=== PATIENT | female | born 2000 | race Caucasian/White ===

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

== ENCOUNTER → 2019-01-25 | Outpatient (CLI) | payer OTHER ==
[2019-01-25 10:18] LABS: HEMATOCRIT 33.8 % (36.0-47.0); HEMOGLOBIN 11.9 g/dl (12.0-15.5); MEAN CORPUSCULAR HEMOGLOBIN 33.5 pg (27.0-33.0); MEAN CORPUSCULAR HGB CONC 35.2 g/dl (32.0-36.5); MEAN CORPUSCULAR VOLUME 95.2 fl (80.0-96.0); PLATELET COUNT, AUTOMATED 203 10^3/uL (150-450); RED BLOOD COUNT 3.55 10^6/uL (4.00-5.40); WHITE BLOOD COUNT 7.8 10^3/uL (4.0-10.0)
== END ==
LOC: M LAB 08:41
PROVIDERS: ATTEND Advanced Practice Midwife
DX: O99.89 Other specified diseases and conditions complicating pregnancy, childbirth and the puerperium (principal); Z3A.00 Weeks of gestation of pregnancy not specified

== ENCOUNTER → 2019-04-07 | Outpatient (REF) | payer OTHER | LOC: M SFHCWAGY 13:38 | PROVIDERS: ATTEND Obstetrics & Gynecology | DX: Z36.85 Encounter for antenatal screening for Streptococcus B (principal) ==

== ENCOUNTER 2019-04-17 17:30 | Outpatient (CLI) | payer OTHER ==
[~2019-04-17] VITALS: Ht 167.6 cm; Wt 84.2 kg
[2019-04-17 17:54] VITALS: BP 126/76
[2019-04-17] MEDS ORDERED: PRENTAB9 PO (18:23)
== END 2019-04-17 19:35 | disposition home or self-care (01) ==
LOC: M LDO 17:30
PROVIDERS: ATTEND Obstetrics & Gynecology
DX: O47.03 False labor before 37 completed weeks of gestation, third trimester (principal); Z3A.37 37 weeks gestation of pregnancy
CPT/HCPCS: 59025; G0378; G0463

== ENCOUNTER 2019-04-18 00:47 | Inpatient (IN) | payer OTHER ==
[2019-04-18] VITALS (31 sets, daily range): BP systolic 97–127; BP diastolic 52–80
[~2019-04-18] VITALS: Ht 167.6 cm; Wt 84.2 kg
[~2019-04-18 00:47] MED LIST: PRENTAB9 PO
[2019-04-18] MEDS ORDERED: LACTATED RINGER'S 1000 ML IV STA (03:32)
[2019-04-18] MEDS ORDERED: LR 1,000 ML IV SCH (03:32)
[2019-04-18 04:11] LABS: HEMOGLOBIN 13.1 g/dl (12.0-15.5); MEAN CORPUSCULAR HEMOGLOBIN 32.8 pg (27.0-33.0); MEAN CORPUSCULAR HGB CONC 34.5 g/dl (32.0-36.5); PLATELET COUNT, AUTOMATED 186 10^3/uL (150-450); WHITE BLOOD COUNT 12.8 10^3/uL (4.0-10.0)
[2019-04-18] MEDS ORDERED: FENTANYL 2MCG/ML ROPIVACAINE 0.2% IN 0.9% NACL 100ML IVBAG As Ordered ONE (04:56)
[2019-04-18] MEDS ORDERED: REFRIGERATOR IV KEYS XX PRN (05:40)
[2019-04-18] MEDS ORDERED: LACTATED RINGER'S 1000 ML IV PRN (05:40)
[2019-04-18] MEDS ORDERED: FENTANYL/ROPIVACAINE/NACL BAG 100 ML EPIDURAL SCH (05:40)
[2019-04-18] MEDS ORDERED: ONDANSETRON 4MG/2ML VIAL (J2405) IV PRN ×2 (05:40→22:00)
[2019-04-18] MEDS ORDERED: EPIDURAL/PCA KEYS XX PRN (05:40)
[2019-04-18] MEDS ORDERED: NALOXONE INJ 0.4 MG/1 ML VIAL (J2310) IV PRN (05:40)
[2019-04-18] MEDS ORDERED: diphenhydrAMINE INJ 50MG/ML VIAL (J1200) IV PRN (05:40)
[2019-04-18] MEDS ORDERED: EPIDURAL COMMENT XX SCH (05:40)
[2019-04-18] MEDS: ePHEDrine SULFATE 25 MG/5 ML(5MG/ML) SYRINGE IV PRN ×2 (08:53→09:08)
[2019-04-18] MEDS ORDERED: OXYTOCIN DRIP 30 UNITS in IV 1 EA IV SCH ×2 (09:00→12:41)
[2019-04-18] MEDS ORDERED: ACETAMINOPHEN TAB 650MG DOSE (2X325MG) PO PRN (12:45)
[2019-04-18] MEDS ORDERED: MEASLES,MUMPS,RUBELLA VACCINE INJ (MMR-II) (90707) SC SCH (12:45)
[2019-04-18] MEDS ORDERED: METHYLERGONOVINE MALEATE 0.2 MG TAB PO PRN (12:45)
[2019-04-18] MEDS ORDERED: RHOGAM 300 MCG (1500 IU) INJ (J2790) IM SCH (12:45)
[2019-04-18] MEDS ORDERED: ANUSOL HC CREAM 30GM TOP PRN (12:45)
[2019-04-18] MEDS ORDERED: IBUPROFEN 600 MG TAB PO PRN (12:45)
[2019-04-18] MEDS ORDERED: DOCUSATE SODIUM 100 MG CAP PO PRN (12:45)
[2019-04-18] MEDS ORDERED: DIBUCAINE 1% OINTMENT 30GM TOP PRN (12:45)
[2019-04-18] MEDS ORDERED: SLF 3 ML SYR IV PRN (13:00)
[2019-04-18] MEDS: SLF 3 ML SYR IV SCH ×2 (14:21→22:12)
[2019-04-18] MEDS ORDERED: ONDANSETRON 4MG/2ML VIAL (J2405) IV ONE (15:00)
[2019-04-18] MEDS ORDERED: KETOROLAC 30 MG/ML VIAL (J1885) IV ONE (16:00)
[2019-04-18] MEDS: ACETAMINOPHEN 500 MG TAB PO PRN (19:59)
--- NOTE | 2019-04-18 20:26 | DNPDOC ---
[facility] Delivery Note Delivery Note DATE OF DELIVERY: 04/18/2019 at 1153 PREDELIVERY DIAGNOSIS: 37-6/7 weeks' gestation and labor. POST DELIVERY DIAGNOSIS: Delivered. PROCEDURE: Spontaneous vaginal delivery. PROVIDER: Maximino Serrano CNM, SHARIFA ANESTHESIA: epidural. ESTIMATED BLOOD LOSS: 400 mL. FINDINGS: 7 pounds 1 ounce; 3200 grams; male infant, Score 8/9, meconium. DELIVERY SUMMARY: Patient is a 18 year-old female who is now a at 37.6 weeks gestation who presented to L&D with SROM and in labor. She received an epidural for pain management. The patient progressed to fully dilated at 1110 and pushed to a living male in the DORON position with restitution to ROT at 1153. The anterior shoulder delivered with ease and the corpus immediately followed. The baby was placed skin to skin and was active and crying. The cord was clamped x2 after pulsation ceased and cut by the FOB. A 3-vessel cord was noted. The placenta delivered spontaneously and intact at 1200. Uterine hemostasis was achieved via rapid infusion of IV Pitocin and fundal massage. The vagina, cervix, and perineum was inspected and found to have bilateral labial abrasions that were not repaired and a perineal abrasion that was repaired with a 3.[address]-1 with a figure 8 suture for hemostasis. Mom plans for breast feed. They plan on naming their son Elver. Both mom and baby are in stable condition. All counts of instruments and sponges are correct. MAXIMINO SERRANO CNM Apr 18, 2019 20:26
[2019-04-19] MEDS: IBUPROFEN 800 MG TAB PO PRN ×2 (03:30→16:31)
[2019-04-19 06:00] VITALS: BP 107/59
--- NOTE | 2019-04-19 07:40 | IPNPDOC ---
Progress Note Date of Service: Apr 19, 2019 Day#: 1 Progress Note SUBJECT: Patient is a 18-year-old female who is day 1 . She has been ambulating, voiding spontaneously without issue and tolerating regular diet. Breast feeding without issue. She has had help with . OBJECTIVE: VITAL SIGNS: Within normal limits, afebrile. Alert and oriented times three. Breath sounds clear to auscultation. Heart rate: Regular rate and rhythm, no murmurs, rubs or gallops. Abdomen: Fundus firm at U-2. Soft, NTTP. Moderate lochia. ASSESSMENT: Day 1 PLAN: 1. continue supportive nursing care and breast feeding support. 2. Anticipate discharge tomorrow. VS, I&O, 24H, Fishbone Vital Signs/I&O Vital Signs Date Time Temp Pulse Resp B/P (MAP) Pulse Ox O2 Delivery O2 Flow Rate FiO2 04/19/19 06:00 97.2 73 16 107/59 (75) 04/18/19 15:05 100 04/18/19 12:30 Room Air I&O- Last 24 Hours up to 6 AM 04/19/19 06:00 Intake Total 1895.1 ml Output Total 2825 ml Balance -929.9 ml MAXIMINO BETANCOURT CNM Apr 19, 2019 07:40
[2019-04-19] MEDS: PRENATAL VITAMINS CHEWABLE TABLET PO SCH (09:00)
[2019-04-19] MEDS: ACETAMINOPHEN 500 MG TAB PO PRN (20:05)
[2019-04-20 06:00] VITALS: BP 102/58
[2019-04-20] MEDS: IBUPROFEN 800 MG TAB PO PRN (07:05)
[2019-04-20] MEDS: PRENATAL VITAMINS CHEWABLE TABLET PO SCH (07:50)
[2019-04-20] MEDS ORDERED: IBUP80TA PO (08:12)
[2019-04-20] MEDS ORDERED: ACET-683 PO (08:12)
== END 2019-04-20 14:23 | disposition home or self-care (01) | DRG 807 ==
LOC: EEVIPCON 00:47 → M LDO 00:47 → M LDI 03:35 → M OBS 14:58
PROVIDERS: ADMIT Obstetrics & Gynecology; ATTEND Advanced Practice Midwife
PROC: 10E0XZZ Delivery of Products of Conception, External Approach (ICD-10-PCS; principal; 2019-04-18)
DX: O80 Encounter for full-term uncomplicated delivery (principal); Z37.0 Single live birth; Z3A.37 37 weeks gestation of pregnancy